=== PATIENT | male | born 1960 | race Caucasian/White ===

== ENCOUNTER 2017-06-09 17:52 | Emergency (ER) | payer MEDICAID ==
[~2017-06-09] VITALS: Ht 182.9 cm; Wt 92.0 kg
[~2017-06-09 17:52] MED LIST: ASPI-110 PO; ATOR1TAB18 PO; B-COCAP9 PO; BACL10TA PO; COQ-30CA2 PO; CYMB60CA PO; LISI-515 PO; LYRI75CA PO; MULT1TAB85 PO; SERO100T PO; SERO25TA PO; TAMS5CAP PO; XANA1TAB2 PO
[2017-06-09 18:07] VITALS: BP 199/106; PULSE 97; RESP 18; TEMP 99; O2SAT 97
[2017-06-09] MEDS ORDERED: HYDR-3366 PO (18:17)
[2017-06-09] MEDS ORDERED: METR-1 PO (18:17)
[2017-06-09] MEDS ORDERED: CIPR-9 PO (18:17)
--- NOTE | 2017-06-09 19:22 | PD ---
HPI Chief Complaint: Complaint Time Seen by Provider: 19:12 Travel History International Travel<30 days: No Contact w/Intl Traveler<30days: No Traveled to known affect area: No History of Present Illness HPI 57-year-old white male presents to emergency department for Crouch catheter placement. He was just treated at [facility]. He was discharged today with a Crouch catheter. He has BPH and has had urinary retention status post appendectomy. He felt that he did not really need the catheter so he attempted to remove it only a few hours after being discharged. He did not realize that there was a balloon attached. He was advised to follow- up with his urologist. The patient pulled Crouch catheter out causing urethral bleeding. The patient is here for evaluation. He denies any fever chills. No nausea vomiting. Normal postoperative abdominal discomfort. PFSH Past Medical History Depression: Yes Heart Rhythm Problems: No Cancer: Yes (CANCER OF TONSIL,NECK CANCER STAGE III ,LUNG) Cardiac Catheterization: No Cardiovascular Problems: Yes (CAD) High Cholesterol: No Chemotherapy: Yes Congestive Heart Failure: No Diabetes: No Diminished Hearing: No Endocrine: No Genitourinary: Yes (ENLARGED PROSTATE--DIFFICULTY EMPTYING BLADDER) Hepatitis: No Hiatal Hernia: No Hypertension: Yes Immune Disorder: No Musculoskeletal: Yes (NECK PAIN FROM RADIATION) Neurologic: No Psychiatric: Yes (DEPRESSION, ANXIETY) Reproductive: No Respiratory: Yes (LUNG CA, COPD) Immunizations Current: No Thyroid Disease: No Influenza Vaccination: No Past Surgical History Abdominal Surgery: No AICD: No Appendectomy: Yes (05/2017) Body Medical Devices: NONE Cardiac Surgery: No Coronary Artery Bypass Graft: No Ear Surgery: No Endocrine Surgery: No Eye Surgery: No Genitourinary Surgery: No Gynecologic Surgery: No Joint Replacement: No Oral Surgery: Yes (TONSILLECTOMY) Pacemaker: No Thoracic Surgery: No Tonsillectomy: Yes Other Surgery: Yes (RIGHT CEA) Family History Family Myocardial Infarction: Yes Social History Alcohol Use: No Tobacco Use: Yes (1 PPD) Substance Use: No Allergies-Medications (Allergen,Severity, Reaction): Coded Allergies: No Known Allergies (Verified Allergy, Unknown, 06/09/17) Reported Meds & Prescriptions Reported Meds & Active Scripts Active Reported Freeburn (Hydrocodone-Acetaminophen) 10-325 Mg Tab 1 Tab PO Q4H PRN Cipro (Ciprofloxacin HCl) 500 Mg Tab 500 Mg PO BID Flagyl (Metronidazole) 500 Mg Tab 500 Mg PO TID Coq-10 (Coenzyme Q10 (Ubidecarenone)) 30 Mg Cap 30 Mg PO DAILY Seroquel (Quetiapine Fumarate) 100 Mg Tab 100 Mg PO HS Aspirin 81 (Aspirin) 81 Mg Tabdr 81 Mg PO DAILY Baclofen 10 Mg Tab 10 Mg PO TID Lyrica (Pregabalin) 75 Mg Cap 75 Mg PO TID Lisinopril 20 Mg Tab 20 Mg PO DAILY Atorvastatin (Atorvastatin Calcium) 80 Mg Tab 80 Mg PO HS Flomax (Tamsulosin HCl) 0.4 Mg Cap 0.4 Mg PO BID Cymbalta DR (Duloxetine HCl) 60 Mg Capdr 60 Mg PO DAILY Review of Systems Except as stated in HPI: all other systems reviewed are Neg Genitourinary: Positive: Dysuria, Hematuria, No: Discharge Physical Exam Narrative GENERAL: This is a well-nourished, well-developed patient, in no apparent distress. SKIN: No rashes, ecchymoses or lesions. Warm and dry. HEAD: Atraumatic. Normocephalic. EYES: PERRL, EOMI, no discharge or injection. No scleral icterus. EARS: Clear NOSE: Nasal turbinates appear normal. THROAT: Mucosa pink and moist. Airway patent. NECK: Trachea midline. supple, moves head freely. LUNGS: Clear to auscultation. CV: Regular in rhythm. ABDOMEN: Soft nontender. EXT: No clubbing cyanosis or edema. GENITOURINARY: Circumcised. Testes descended bilaterally without evidence of rotation. No lesions or erythema. Positive blood at the opening of the meatus. Data Data Last Documented VS Vital Signs Date Time Temp Pulse Resp B/P (MAP) Pulse Ox O2 Delivery O2 Flow Rate FiO2 06/09/17 18:07 99.0 97 18 199/106 (137) 97 Room Air Orders Orders Urinary Catheter Insert/Apply (06/09/17 19:17) [facility] Medical Decision Making Medical Screen Exam Complete: Yes Emergency Medical Condition: Yes Medical Record Reviewed: Yes Differential Diagnosis Differential diagnosis: BPH, urinary retention, urethral injury Narrative Course The patient has pulled out his own Crouch catheter without deflating the Crouch balloon. The patient is attempted to urinate but has not been able to. A Crouch has been placed again and the patient is medically stable for discharge. BPH, postoperative urinary retention, Crouch placement Diagnosis Primary Impression: BPH (benign prostatic hyperplasia) Additional Impressions: Postoperative urinary retention Encounter for Crouch catheter replacement Patient Instructions: General Instructions Additional Instructions: Rest. Increase fluids. Follow-up with your urologist the next 2-3 days. Follow-up the recommendations of [facility]. Med/Other Pt SpecificInfo: No Change to Meds Disposition: 01 DISCHARGE HOME Condition: Stable Nick Barnes Jun 09, 2017 19:22
== END 2017-06-09 19:43 | disposition home or self-care (01) ==
LOC: NEPD 17:52
DX: N40.0 Benign prostatic hyperplasia without lower urinary tract symptoms (principal); R33.8 Other retention of urine; I25.10 Atherosclerotic heart disease of native coronary artery without angina pectoris; I10 Essential (primary) hypertension; J44.9 Chronic obstructive pulmonary disease, unspecified; F32.9 Major depressive disorder, single episode, unspecified; F17.200 Nicotine dependence, unspecified, uncomplicated; Z85.118 Personal history of other malignant neoplasm of bronchus and lung; Z79.82 Long term (current) use of aspirin
CPT/HCPCS: 99283